=== PATIENT | male | born 1965 | race African-American/Black ===

== ENCOUNTER 2024-10-18 14:43 | Emergency (ER) | payer BC, SELFPAY ==
[2024-10-18 14:48] VITALS: BP 140/73
--- NOTE | 2024-10-18 16:43 | ED.GENMED ---
History of Present Illness
<Gely Yan PA-C - Last Filed: 10/21/24 08:15>
General
Chief Complaint: Skin Surface Trauma
Source: patient
Exam Limitations: none
Time Seen by Provider: 10/18/24 15:48
Nursing documentation reviewed up to this point in time: agreed with
History of Present Illness
History of Present Illness:
58 y/o M with HTN, hld
here with pain/redness to R upper arm that he noticed yesterday
pt says that about 1 week ago he noticed pain/swelling to his R middle finger, sounds like paronychia
he says 2 days later he did telehealth and got cephalexin
took it for 1 day and woke up with worsening pain/swellign to the fat pad and around the nail
he also started with pain an da lump in his L axilla
he went to and was told he had CARLO in the armpit. they added doxycycline which he has been taking
he says he now noticed an area of redness/pain in the RUE medially; and continues to have pain an da lump in hte armpit
no cats/scratches
the fniger looks much better
no dficits distally
no fever/chills/night sweats
no chest pain, syncope
Past History
<Gely Yan PA-C - Last Filed: 10/21/24 08:15>
Past History
ED Past Medical History: HTN and Hypercholesterolemia
Social History
Tobacco: Non-smoker
Alcohol: None
Review of Systems
<Gely Yan PA-C - Last Filed: 10/21/24 08:15>
Review of Systems
Allergies reviewed?: Yes
All Other Systems: Not applicable
Phy Exam
<Gely Yan PA-C - Last Filed: 10/21/24 08:15>
Physical Exam
Physical Exam:
GENERAL: Alert , in no apparent distress
EYE: pupils equal and reactive
NECK: Supple
ENT: o/p clr, mmm.
CARDIAC: Regular rate and rhythm .
LUNGS: Clear breath sounds bilaterally, no acute respiratory distress, no wheezes/rales/rhonchi
ABDOMEN: Soft, without focal tenderness, no r/g, no cvat, normal bowel sounds
NEUROLOGICAL: Alert and oriented, no focal neuro deficits, full ROM, no numbness/tigling/weakness
SKIN: Warm and dry,
area of FAINT erythema to medial RUE with mild warmth; no cord
MUSCULOSKELETAL: no significant edema
full rom ofth earm
CARLO palpated in the LUE, less than2 cm
full rom
finger looks minimally swollen at the prox nail fold but is very soft and the fat pad normal
normal tendons
PSYCH: Normal and appropriate interaction.
Course
<Gely Yan PA-C - Last Filed: 10/21/24 08:15>
Orders/Labs/Results
Orders:
Orders
10/18/24 16:32
Venous Doppler Upr Ext Right [US Periph Venous UPPER Ext RT] Urgent
Comment:
Reason For Exam: R arm redness; eval thromboph vs. cell vs. lymphad
10/18/24 17:11
Complete Blood Count/With Diff Urgent
Comprehensive Metabolic Panel Urgent
Lactic Acid Urgent
10/18/24 18:10
Ampicillin/Sulbactam 3 G [Unasyn] 3 gm 0.9% Sodium Chloride 100 ml [Nss] 100 ml IV NOW
10/18/24 18:52
Blood Culture Urgent
[facility] Source: Blood/Venous
Specimen Description:
10/18/24 18:59
Blood Culture Urgent
[facility] Source: Blood/Venous
Specimen Description:
Abnormal Lab Results
10/18/24
17:11
RBC 4.54 L 10^6/uL
(4.70-6.10)
MPV 11.3 H fL
(7.4-10.4)
Monocytes % 10.2 H %
(1.7-9.3)
BUN 23 H mg/dl
(9-20)
10/18/24 17:11
10/18/24 17:11
Vital Signs
Initial and Last Documented VS:
Initial Vital Signs
Temp Pulse Resp BP Pulse Ox
36.7 C 79 16 140/73 100
10/18/24 14:48 10/18/24 14:48 10/18/24 14:48 10/18/24 14:48 10/18/24 14:48
Last Documented Vital Signs
Temp Pulse Resp BP Pulse Ox
36.8 C 77 20 142/88 99
10/18/24 19:04 10/18/24 19:04 10/18/24 19:04 10/18/24 19:04 10/18/24 19:04
<Tasha Martin MD - Last Filed: 10/18/24 18:23>
Orders/Labs/Results
Orders:
Orders
10/18/24 16:32
Venous Doppler Upr Ext Right [US Periph Venous UPPER Ext RT] Urgent
Comment:
Reason For Exam: R arm redness; eval thromboph vs. cell vs. lymphad
10/18/24 17:11
Complete Blood Count/With Diff Urgent
Comprehensive Metabolic Panel Urgent
Lactic Acid Urgent
10/18/24 18:10
Ampicillin/Sulbactam 3 G [Unasyn] 3 gm 0.9% Sodium Chloride 100 ml [Nss] 100 ml IV NOW
10/18/24 18:52
Blood Culture Urgent
[facility] Source: Blood/Venous
Specimen Description:
10/18/24 18:59
Blood Culture Urgent
[facility] Source: Blood/Venous
Specimen Description:
Abnormal Lab Results
10/18/24
17:11
RBC 4.54 L 10^6/uL
(4.70-6.10)
MPV 11.3 H fL
(7.4-10.4)
Monocytes % 10.2 H %
(1.7-9.3)
BUN 23 H mg/dl
(9-20)
10/18/24 17:11
10/18/24 17:11
Vital Signs
Initial and Last Documented VS:
Initial Vital Signs
Temp Pulse Resp BP Pulse Ox
36.7 C 79 16 140/73 100
10/18/24 14:48 10/18/24 14:48 10/18/24 14:48 10/18/24 14:48 10/18/24 14:48
Last Documented Vital Signs
Temp Pulse Resp BP Pulse Ox
36.8 C 77 20 142/88 99
10/18/24 19:04 10/18/24 19:04 10/18/24 19:04 10/18/24 19:04 10/18/24 19:04
Amandalt;Laura Hansen PA-C - Last Filed: 10/18/24 19:02>
Orders/Labs/Results
Orders:
Orders
10/18/24 16:32
Venous Doppler Upr Ext Right [US Periph Venous UPPER Ext RT] Urgent
Comment:
Reason For Exam: R arm redness; eval thromboph vs. cell vs. lymphad
10/18/24 17:11
Complete Blood Count/With Diff Urgent
Comprehensive Metabolic Panel Urgent
Lactic Acid Urgent
10/18/24 18:10
Ampicillin/Sulbactam 3 G [Unasyn] 3 gm 0.9% Sodium Chloride 100 ml [Nss] 100 ml IV NOW
10/18/24 18:52
Blood Culture Urgent
[facility] Source: Blood/Venous
Specimen Description:
10/18/24 18:59
Blood Culture Urgent
[facility] Source: Blood/Venous
Specimen Description:
Abnormal Lab Results
10/18/24
17:11
RBC 4.54 L 10^6/uL
(4.70-6.10)
MPV 11.3 H fL
(7.4-10.4)
Monocytes % 10.2 H %
(1.7-9.3)
BUN 23 H mg/dl
(9-20)
10/18/24 17:11
10/18/24 17:11
Vital Signs
Initial and Last Documented VS:
Initial Vital Signs
Temp Pulse Resp BP Pulse Ox
36.7 C 79 16 140/73 100
10/18/24 14:48 10/18/24 14:48 10/18/24 14:48 10/18/24 14:48 10/18/24 14:48
Last Documented Vital Signs
Temp Pulse Resp BP Pulse Ox
36.8 C 77 20 142/88 99
10/18/24 19:04 10/18/24 19:04 10/18/24 19:04 10/18/24 19:04 10/18/24 19:04
<Gely Yan PA-C - Last Filed: 10/21/24 08:15>
MDM/Problems Addressed
Differential Diagnosis Includes:
finger infection, cat scratch disease, lymphadnitis/lymphangitis
MDM/Problems Addressed:
58 y/o M with recent finger infection on abx
with Lymph node swelling in the L axilla with a slight redness streak in the RUE/warmth inthe medial arm
no fever/chills
he looks extremely well
i do appreciate that the paronychia looks much improved from photos
probably I&D was warranted initally but not with improvement now
but the lymphangitis/lymphadenitis may require advacing the abx coverage, [facility] it was decent coverage
reassuring wbc 5.5 and lactic acid
US to r/o thrombophlebitis
plan on iv abx and likely d/c with different regimen
<Gely Yan PA-C - Last Filed: 10/21/24 08:15>
*Pulse Oximetry
SaO2: 100
Oxygen Mode of Delivery: Room air
<Laura Hansen PA-C - Last Filed: 10/18/24 19:02>
*Pulse Oximetry
Patient hypoxic: no (100%)
*Critical Care Note
Total Time (30-74mins, 75-104mins- exclusive of procedures): Not Applicable
<Laura Hansen PA-C - Last Filed: 10/18/24 19:02>
Update Note
Update Note:
I assumed care of patient awaiting venous duplex results. Ultrasound negative for DVT. Lab work reassuring. No indication for hospitalization. Will plan to switch Keflex to Augmentin. Patient advised to continue doxycycline. Advised follow-up
with PCP and ED return precautions reviewed including fevers. Patient discharged stable condition.
ED Attending Note
<Gely Yan PA-C - Last Filed: 10/21/24 08:15>
-
Portions of this chart may have been created with voice recognition software.� Occasional wrong word or��sound alike� substitutions may have occurred due to the inherent limitations of voice recognition software.
<Tasha Martin MD - Last Filed: 10/18/24 18:23>
ED Attending Note
Patient seen and examined by attending physician: Yes
I performed the substantive portion of visit, reviewed & personally made and approve the management plan that is documented in note by myself or SETH.: Yes
ED Attending Note:
Patient looks extremely well and comfortable. He denies fevers and chills. Right upper arm is mildly warm but extremely soft and nontender. Right forearm is nontender. Fingers are soft without any erythema or tenderness. Family is asking for a
blood culture to be sent. However, I do not feel patient needs to be admitted.
Discharge Plan
Departure
Patient Disposition: Home (Routine Discharge)
Date of Disposition: 10/18/24
Time of Disposition: 18:26
Patient with high blood pressure during this ER visit?: Yes
Discharge Problem:
Lymphangitis
Instructions: Swollen lymph nodes in adults
Prescriptions:
New
amoxicillin-pot clavulanate 875-125 mg tablet
1 tab PO BID Qty: 14 0RF
Referrals:
Abel David MD [Family Provider]
Activity Restrictions/Additional Instructions:
Continue taking doxycycline. Switch Keflex to Augmentin. Take probiotics while taking the antibiotics.
Please follow-up with your family doctor next week. Return to the ER with any worsening symptoms including fevers.
Interventions
Interventions:
*Risk Screen - Suicide Last Done: 10/18/24 14:48
*General Assessment Last Done: 10/18/24 14:48
*Neglect/Abuse Screening Last Done: 10/18/24 19:26
*ED- Fall Risk Assessment Last Done: 10/18/24 18:00
*ED COVID-19 Vaccine History Last Done: 10/18/24 18:00
*Nursing Disposition Last Done: 10/18/24 19:26
ED-Skin Assessment Last Done: 10/18/24 18:00
Discharge Date and Time
Discharge Date/Time: 10/18/24 19:27
Print Language: DOMINICAN
[2024-10-18 17:13] VITALS: BMI 32.2
[2024-10-18 17:21] LABS: Hematocrit 39.4 % (39.0-52.0); Hemoglobin 13.7 g/dL (13.0-18.0); Mean Corp Hgb Conc. 34.8 g/dL (33.0-37.0); Mean Corpuscular Volume 86.8 fL (80.0-94.0); Nucleated Red Blood Cells % 0 % (-); Platelet Count 176 10^3/uL (130-400); Red Cell Dist. Width 13.2 % (11.5-14.5)
[2024-10-18 17:40] LABS: ALT (SGPT) 35 U/L (0-50); AST (SGOT) 39 U/L (17-59); Albumin 4.7 g/dl (3.5-5.0); Alkaline Phosphatase 58 U/L (38-126); Blood Urea Nitrogen 23 mg/dl (9-20); Calcium 9.9 mg/dl (8.4-10.2); Carbon Dioxide 28 mmol/L (22-30); Chloride 106 mmol/L (98-107); Estimated Creatinine Clearance 74 ml/min; Glucose 94 mg/dl (70-99); Potassium 3.9 mmol/L (3.5-5.1); Sodium 141 mmol/L (135-145); Total Protein 7.5 g/dl (6.3-8.2); eGFR > 60.00
[2024-10-18] MEDS: UNASYN IV (18:42)
[2024-10-18 19:04] VITALS: BP 142/88
== END 2024-10-18 19:27 | disposition home or self-care (01) ==
LOC: EMR 14:43
PROVIDERS: Physician Assistant; EMERGENCY PHYSICIAN Emergency Medicine; FAMILY PHYSICIAN Internal Medicine
DX: I89.1 Lymphangitis (principal); I10 Essential (primary) hypertension; E78.00 Pure hypercholesterolemia, unspecified
CPT/HCPCS: 99285; 96365; 80053; 83605; 85025; 87040; 93971

== ENCOUNTER 2024-10-30 15:03 | Emergency (ER) | payer BC, SELFPAY ==
[2024-10-30 15:05] VITALS: BP 111/78
--- NOTE | 2024-10-30 18:39 | ED.GENMED ---
History of Present Illness
General
Chief Complaint: Skin Problem
Time Seen by Provider: 10/30/24 16:57
History of Present Illness
History of Present Illness:
58-year-old male the emergency department for evaluation of persistent right axillary pain. Was treated earlier in the month for a paronychia with lymphangitis with antibiotics and at that time had an ultrasound showing basilic vein adenopathy. He
states that his right axilla has become progressively more painful since that time. He notes a firm swollen area in the axilla that prevents him from fully abducting the right arm
Past History
Past History
ED Past Medical History: HTN and Hypercholesterolemia
Social History
Tobacco: Non-smoker
Alcohol: None
Review of Systems
Review of Systems
Allergies reviewed?: Yes
All Other Systems: ROS reviewed and negative except as documented in HPI and ROS
Phy Exam
Physical Exam
Physical Exam:
GEN: Well appearing, NAD, WDWN
HEENT: Oral mucosa moist, no scleral icterus
Cardiac: Regular rate
Lung: No respiratory distress, no tachypnea
MSK: Firmness to the central right axilla linear band of unclear significance, no erythema
Skin: Good color, no pallor or jaundice, no rashes
Neuro: AO x3, moves all extremities freely
Psych: Calm, cooperative
Course
Orders/Labs/Results
Orders:
Orders
10/30/24 17:12
Venous Doppler Upr Ext Right [US Periph Venous UPPER Ext RT] Urgent
Comment:
Reason For Exam: R axillary linear mass
Vital Signs
Initial and Last Documented VS:
Initial Vital Signs
Temp Pulse Resp BP Pulse Ox
98.4 F 75 18 111/78 97
10/30/24 15:05 10/30/24 15:05 10/30/24 15:05 10/30/24 15:05 10/30/24 15:05
Last Documented Vital Signs
Temp Pulse Resp BP Pulse Ox
98.4 F 75 18 111/78 97
10/30/24 15:05 10/30/24 15:05 10/30/24 15:05 10/30/24 15:05 10/30/24 18:40
MDM/Problems Addressed
MDM/Problems Addressed:
Ultrasound confirms the abnormality is clearly a lymph node. Discussed with the patient that this will likely take time to fully resolve, recommend NSAIDs and ice to reduce swelling and pain
*Pulse Oximetry
SaO2: 97
Oxygen Mode of Delivery: Room air
Patient hypoxic: no
*Critical Care Note
Total Time (30-74mins, 75-104mins- exclusive of procedures): Not Applicable
ED Attending Note
-
Portions of this chart may have been created with voice recognition software.� Occasional wrong word or��sound alike� substitutions may have occurred due to the inherent limitations of voice recognition software.
Discharge Plan
Departure
Patient Disposition: Home (Routine Discharge)
Date of Disposition: 10/30/24
Time of Disposition: 18:39
Patient with high blood pressure during this ER visit?: No
Discharge Problem:
Axillary adenopathy
Instructions: Swollen lymph nodes in adults
Prescriptions:
No Action
amoxicillin-pot clavulanate 875-125 mg tablet
1 tab PO BID Qty: 14 0RF
Referrals:
Abel David MD [Family Provider]
Activity Restrictions/Additional Instructions:
The lymph node is likely persistently swollen in the setting of your recent infection and appears to be benign on ultrasound
If it continues to remain enlarged biopsy may be warranted however this is unlikely to provide any clinical benefit
Please take anti-inflammatory medicine such as ibuprofen or Aleve and ice to the area to reduce swelling
Interventions
Interventions:
*Risk Screen - Suicide Last Done: 10/30/24 15:05
*General Assessment Last Done: 10/30/24 15:05
*Nursing Disposition Last Done: 10/30/24 18:59
ED-Skin Assessment Last Done: 10/30/24 17:00
Discharge Date and Time
Discharge Date/Time: 10/30/24 18:59
Print Language: AUSTRIAN
== END 2024-10-30 18:59 | disposition home or self-care (01) ==
LOC: EMR 15:03
PROVIDERS: EMERGENCY PHYSICIAN Student in an Organized Health Care Education/Training Program; FAMILY PHYSICIAN Internal Medicine
DX: M79.621 Pain in right upper arm (principal); R59.0 Localized enlarged lymph nodes; I10 Essential (primary) hypertension; E78.00 Pure hypercholesterolemia, unspecified
CPT/HCPCS: 99284; 93971